=== PATIENT | male | born 1995 | race African-American/Black ===

== ENCOUNTER 2017-04-02 23:48 | Emergency (ER) | payer OTHER, MEDICAID ==
[~2017-04-02] VITALS: Ht 180.3 cm; Wt 102.2 kg
[2017-04-03] MEDS ORDERED: IBUPROFEN 600MG TABLET PO ONE (05:00)
[2017-04-03 06:44] VITALS: BP 138/67
== END 2017-04-03 06:45 | disposition home or self-care (01) ==
LOC: ER 23:48
DX: S63.602A Unspecified sprain of left thumb, initial encounter (principal); W50.2XXA Accidental twist by another person, initial encounter; Y93.89 Activity, other specified; Y92.89 Other specified places as the place of occurrence of the external cause; Y99.8 Other external cause status
CPT/HCPCS: 73130; 99284